=== PATIENT | male | born 1960 | race Two or more races ===

== ENCOUNTER 2019-05-18 15:06 | Emergency (ER) | payer OTHER ==
[~2019-05-18] VITALS: Ht 165.1 cm; Wt 77.1 kg
[~2019-05-18 15:06] MED LIST: HYDROCHLOROTH12.5 M1; LISINOPRIL5 MG
== END 2019-05-18 17:54 | disposition home or self-care (01) ==
LOC: ER 15:06
DX: B02.9 Zoster without complications (principal)